=== PATIENT | female | born 2000 | race African-American/Black ===

== ENCOUNTER 2018-06-17 14:58 | Emergency (ER) | payer OTHER ==
[2018-06-17 15:58] LABS: Absolute Monocytes 0.7 K/uL (0.1-1.3); Absolute Neutrophil 4.1 K/uL (1.8-8.0); Basophils % 0.5 % (0-1.3); Eosinophils % 2.6 % (0-4.4); Hematocrit 43.1 % (36.0-45.0); Lymphocytes % 16.3 % (15.3-44.8); MPV 8.3 fL (7.6-11.3); Monocytes % 11.4 % (3.3-12.3); RBC Red Blood Cell Count 5.45 M/uL (3.86-4.86)
[2018-06-17 16:08] LABS: Protime INR 1.3
[2018-06-17 16:24] LABS: ALT/SGPT 23 U/L (12-78); AST/SGOT 14 U/L (15-37); Albumin 3.6 g/dL (3.4-5.0); Alkaline Phosphatase 99 U/L (45-117); BUN Blood Urea Nitrogen 11 mg/dL (7-18); Bicarbonate 24 mmol/L (21-32); Bilirubin Direct 0.1 mg/dL (0-0.2); Bilirubin Total 0.3 mg/dL (0.2-1.0); Glucose Level 86 mg/dL (74-106); Potassium 3.3 mmol/L (3.5-5.1); Protein, Total 8.6 g/dL (6.4-8.2); Sodium Level 138 mmol/L (136-145)
[2018-06-17 16:35] LABS: Barbiturates NEGATIVE (NEGATIVE); Benzodiazepines POSITIVE (NEGATIVE); Cocaine NEGATIVE (NEGATIVE); METHAMPHETAM NEGATIVE (NEGATIVE); Methadone NEGATIVE (NEGATIVE); Opiates NEGATIVE (NEGATIVE); Phencyclidine NEGATIVE (NEGATIVE); THC Cannibis POSITIVE (NEGATIVE)
[2018-06-17] MEDS ORDERED: NA CHLORIDE 0.9% 1,000 ML ONE (16:55)
[2018-06-17] MEDS ORDERED: CEFTRIAXONE/SWI 1gm 1 GM/10 ML SYR ONE (16:55)
[2018-06-17] MEDS ORDERED: HYDROCODONE/APAP 5/325 MG TAB ONE (17:32)
[2018-06-17] MEDS ORDERED: ACETAMINOPHEN 500 MG TAB ONE (17:32)
[2018-06-17 18:07] LABS: Urine Blood NEGATIVE (NEG); Urine Glucose NEGATIVE (NEG); Urine Protein TRACE (NEG); Urine Specific Gravity 1.025 (1.005-1.030)
[2018-06-17] MEDS ORDERED: IBUPROFEN 400 MG TAB ONE (19:32)
--- NOTE | 2018-06-17 20:33 | EDPHYS ---
Physician Documentation [facility] Name: Ramila Wong Age: 17 yrs Sex: Female : 2000 Arrival Date: 06/17/2018 Time: 15:10 Bed 14 Private MD: ED Physician Walt Christopher HPI: 06/17 16:16 This 17 yrs old Black Female presents to ER via Ambulatory with complaints of Suicidal snw Ideation. 16:16 The patient presents to the emergency department with a history of a suicide gesture, snw put [place] lights around her neck after arguing with her Mother. Pt states she is not wanting to hurt herself or anyone else. She says she just doesn't feel good and is very frustrated with her Mother.. Onset: The symptoms/episode began/occurred suddenly, 2 day(s) ago, and became persistent. Past psychiatric history: Prior diagnosis: bipolar disorder, the patient has had a prior suicide gesture, where the patient cut wrists. Associated signs and symptoms: Pertinent positives; fever, sore throat, cough. Severity of symptoms: At their worst the symptoms were moderate. It is unknown whether or not the patient has had similar symptoms in the past. The patient has not recently seen a physician. 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 - Social history:: Smoking status: Patient uses tobacco products, smokes one pack cigarettes per day. Patient uses street drugs, marijuana. - Ebola Screening: : No symptoms or risks identified at this time. ROS: 16:12 Constitutional: Negative for chills and weight loss, + fever Eyes: Negative for injury, snw pain, redness, and discharge. 16:12 Neck: Negative for injury, pain, and swelling, Cardiovascular: Negative for chest pain, palpitations, and edema, Respiratory: Negative for shortness of breath, cough, wheezing, and pleuritic chest pain, Abdomen/GI: Negative for abdominal pain, nausea, vomiting, diarrhea, and constipation, Back: Negative for injury and pain, : Negative for injury, bleeding, discharge, and swelling, MS/Extremity: Negative for injury and deformity, Skin: Negative for injury, rash, and discoloration, Neuro: Negative for headache, weakness, numbness, tingling, and seizure. 16:12 ENT: Positive for sore throat. 16:12 Psych: Positive for suicide gesture, frustration. Exam: 16:04 Constitutional: This is a well developed, well nourished patient who is awake, alert, snw and in no acute distress. febrile, uncomfortable Head/Face: Normocephalic, atraumatic. Eyes: Pupils equal round and reactive to light, extra-ocular motions intact. Lids and lashes normal. Conjunctiva and sclera are non-icteric and not injected. Cornea within normal limits. Periorbital areas with no swelling, redness, or edema. Neck: Trachea midline, no thyromegaly or masses palpated, and no cervical lymphadenopathy. Supple, full range of motion without nuchal rigidity, or vertebral point tenderness. No Meningismus. Chest/axilla: Normal chest wall appearance and motion. Nontender with no deformity. No lesions are appreciated. Respiratory: Lungs have equal breath sounds bilaterally, clear to auscultation and percussion. No rales, rhonchi or wheezes noted. No increased work of breathing, no retractions or nasal flaring. Abdomen/GI: Soft, non-tender, with normal bowel sounds. No distension or tympany. No guarding or rebound. No evidence of tenderness throughout. Back: No spinal tenderness. No costovertebral tenderness. Full range of motion. Skin: Warm, dry with normal turgor. Normal color with no rashes, no lesions, and no evidence of cellulitis. MS/ Extremity: Pulses equal, no cyanosis. Neurovascular intact. Full, normal range of motion. 16:04 Neuro: Awake and alert, GCS 15, oriented to person, place, time, and situation. Cranial nerves II-XII grossly intact. Motor strength 5/5 in all extremities. Sensory grossly intact. Cerebellar exam normal. Normal gait. 16:04 ENT: Ear canal(s): are normal, TM's: decreased mobility, erythema, fluid levels, on the left, Nose: is normal, Mouth: is normal, Posterior pharynx: erythema, that is moderate, Voice: is normal. 16:04 Cardiovascular: Rate: tachycardic, Rhythm: regular, Pulses: no pulse deficits are appreciated, Edema: is not appreciated. 16:04 Psych: Behavior/mood is pleasant, cooperative, Affect is calm, Oriented to person, place, time, pt was very frustrated with her Mother yesterday and today. States her Mother is a mother in name only. Pt has been feeling ill x 2 days and requested seeing a Doctor and Mom did not want to take her. Pt states she is not suicidal or homicidal but just became overly frustrated with her Mom. Pt states she has a solid, safe relationship with her Grandparents and can easily stay with them for a while., Judgement / Insight is normal. Vital Signs: 15:19 BP 107 / 79; Pulse 95; Resp 16; Temp 100.4(O); Pulse Ox 95% on R/A; Weight 117.93 kg; dh3 Height 6 ft. 1 in. (185.42 cm); Pain 8/10; 17:10 BP 111 / 68; Pulse 93; Resp 17; Temp 101.5; Pulse Ox 96% on R/A; dh3 17:55 Temp 100.3; dh3 19:15 Temp 101.6(O); jb4 20:15 BP 121 / 47; Pulse 78; Resp 16; Temp 98.7(O); Pulse Ox 96% on R/A; jb4 15:19 Body Mass Index 34.30 (117.93 kg, 185.42 cm) dh3 MDM: 15:20 Patient medically screened. snw 20:21 Data reviewed: vital signs, nurses notes. Data interpreted: Pulse oximetry: on room air snw is 96 %. Interpretation: acceptable. Counseling: I had a detailed discussion with the patient and/or guardian regarding: the historical points, exam findings, and any diagnostic results supporting the discharge/admit diagnosis, lab results, the need for outpatient follow up, for definitive care, to return to the emergency department if symptoms worsen or persist or if there are any questions or concerns that arise at home. Response to treatment: the patient's symptoms have markedly improved after treatment, patient is well hydrated. states she is safe and comfortable with her Grandparents. Pt states she is not having SI, HI. 20:33 Awaiting: Grandfather to sweet pickle maker. Special discussion: Based on the history and exam [facility] findings, there is no indication for further emergent testing or inpatient evaluation. I discussed with the patient/guardian the need to see the primary care provider for further evaluation of the symptoms. I discussed with the patient/guardian the need to see the psychiatrist for further evaluation of the symptoms. 06/17 15:36 Order name: Acetaminophen [facility] 06/17 15:36 Order name: Basic Metabolic Panel [facility] 06/17 15:36 Order name: CBC with Diff [facility] 06/17 15:36 Order name: ETOH Level [facility] 06/17 15:36 Order name: Hepatic Function [facility] 06/17 15:36 Order name: PT-INR; Complete Time: 16: [facility] 06/17 15:36 Order name: Ptt, Activated; Complete Time: 16: [facility] 06/17 15:36 Order name: Salicylate; Complete Time: 16:52 [facility] 06/17 15:36 Order name: Urine Drug Screen; Complete Time: 16:52 [facility] 06/17 15:36 Order name: Flu; Complete Time: 16:52 [facility] 06/17 15:36 Order name: Strep; Complete Time: 17:02 [facility] 06/17 15:37 Order name: Acetaminophen Level; Complete Time: 16: [facility] 06/17 15:37 Order name: Basic Metabolic Panel; Complete Time: 16: [facility] 06/17 15:37 Order name: CBC with Automated Diff; Complete Time: 16:03 [facility] 06/17 15:36 Order name: Urine Test (obtain specimen); Complete Time: 16:09 [facility] 06/17 15:36 Order name: EKG; Complete Time: 15:37 [facility] 06/17 15:36 Order name: EKG - Nurse/Tech; Complete Time: 16: [facility] 06/17 15:37 Order name: Alcohol Serum/Plasma; Complete Time: 16: [facility] 06/17 15:37 Order name: Liver (Hepatic) Function; Complete Time: 16: [facility] 06/17 16:04 Order name: Urine Dipstick--Ancillary (enter results); Complete Time: 18:14 06/17 16:04 Order name: Urine --Ancillary (enter results); Complete Time: 18:14 06/17 17:00 Order name: Throat Culture EDMS 06/17 17:19 Order name: Diet Finger Food; Complete Time: 17:19 dh3 06/17 15:36 Order name: IV Saline Lock; Complete Time: 16:09 snw 06/17 15:36 Order name: Labs collected and sent; Complete Time: 16:09 snw 06/17 15:36 Order name: Urine Dipstick-Ancillary (obtain specimen); Complete Time: 16:09 snw Administered Medications: 16:01 CANCELLED (Duplicate Order): Rocephin - (cefTRIAXone) 1 grams IVPB once over 30 mins; rb1 (mix in 50 mL NS) 17:00 Drug: NS 0.9% 1000 ml Route: IV; Rate: 1 bolus; Site: right antecubital; rb1 19:00 Follow up: Response: No adverse reaction; IV Status: Completed infusion jb4 17:00 Drug: Rocephin 1 grams Route: IV; Rate: calculated rate; Site: right antecubital; rb1 17:30 Follow up: Response: No adverse reaction; IV Status: Completed infusion rb1 17:24 Drug: Harper 5 mg-325 mg 1 tabs Route: PO; rb1 17:50 Follow up: Response: No adverse reaction; Pain is decreased rb1 17:24 Drug: Tylenol 500 mg Route: PO; rb1 17:50 Follow up: Response: No adverse reaction rb1 19:26 Drug: Motrin 400 mg Route: PO; jb4 20:31 Follow up: Response: No adverse reaction; Temperature is decreased jb4 20:47 Drug: Potassium Effervescent Tablet 50 mEq Route: PO; jb4 20:48 Follow up: Response: No adverse reaction jb4 Disposition: 06/18 07:07 Co-signature as Attending Physician, Walt Christopher MD. rn Disposition: 06/17/18 20:31 Discharged to Home. Impression: Fever presenting with conditions classified elsewhere, Acute suppurative otitis media, Psychological distress - resolved. - Condition is Stable. - Discharge Instructions: Otitis Media, Adult, Fever, Adult, Stress and Stress Management. - Work release form, Medication Reconciliation Form, Thank You Letter, Antibiotic Education, Prescription Opioid Use form. - Follow up: Private Physician; When: 2 - 3 days; Reason: Recheck today's complaints, Continuance of care, Re-evaluation by your physician. Follow up: Emergency Department; When: As needed; Reason: Worsening of condition. Signatures: Dispatcher [employer] EDMS Felicitas Valiente, AIR SUPPORT OPERATIONS OPERATOR-C AIR SUPPORT OPERATIONS OPERATOR-Csnw Walt Christopher MD MD rn Barber, Rebecca, RN RN rb1 Nina Richardson, ANDREAS RN Parag Lopez RN RN jb4 Corrections: (The following items were deleted from the chart) 06/17 16:01 15:36 Rocephin - (cefTRIAXone) 1 grams IVPB once over 30 mins; (mix in 50 mL NS) rb1 ordered. snw 20:55 20:31 06/17/2018 20:31 Discharged to Home. Impression: Fever presenting with conditions jb4 classified elsewhere; Acute suppurative otitis media; Psychological distress - resolved. Condition is Stable. Forms are Medication Reconciliation Form, Thank You Letter, Antibiotic Education, Prescription Opioid Use. Follow up: Private Physician; When: 2 - 3 days; Reason: Recheck today's complaints, Continuance of care, Re-evaluation by your physician. Follow up: Emergency Department; When: As needed; Reason: Worsening of condition. snw
--- NOTE | 2018-06-17 20:33 | ER ---
Nurse's Notes [facility] Name: Ramila Wong Age: 17 yrs Sex: Female : 2000 Arrival Date: 06/17/2018 Time: 15:10 Bed 14 Private MD: Diagnosis: Fever presenting with conditions classified elsewhere;Acute suppurative otitis media;Psychological distress - resolved Presentation: 06/17 15:19 Presenting complaint: Mother called PD for suicidal ideation. Pt wrapped neck with a hb string of [place] lights after argument with mother. Hx Bipolar, previous suicide attempt by cutting arm. Pt reported she was running fever and felt sick yesterday and was trying to come to hospital but mother took away her car keys, today they argued again and she "just got too upset to deal with it.". Transition of care: [facility]. Onset of symptoms was June 17, 2018. Risk Assessment: Do you want to hurt yourself or someone else? Patient reports desire/thoughts of hurting themselves or someone else. Provider notified. Initial Sepsis Screen: Does the patient meet any 2 criteria? No. Patient's initial sepsis screen is negative. Does the patient have a suspected source of infection? No. Patient's initial sepsis screen is negative. Care prior to arrival: None. 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 - Social history:: Smoking status: Patient uses tobacco products, smokes one pack cigarettes per day. Patient uses street drugs, marijuana. - Ebola Screening: : No symptoms or risks identified at this time. Screenin:20 Abuse screen: Denies threats or abuse. Nutritional screening: No deficits noted. rb1 Tuberculosis screening: No symptoms or risk factors identified. Fall Risk None identified. Assessment: 15:20 General: Appears distressed, Behavior is crying, Reports chills for 1-2 days, fever for rb1 feeling ill for Got into a fight with her mother yesterday because she wanted to come to the hospital, but her mother didn't wan there to come. They got into and argument then and today it escalated. The pt. put a string of [place] lights around her neck and threatened to hurt herself and her mother called the police. Pt. stated, "I don't want to hurt myself or anyone else, I just did it in the heat of the moment because I was mad at my mom.". Pain: Complains of pain in head Pain currently is 7 out of 10 on a pain scale. Neuro: Level of Consciousness is awake, alert, obeys commands, Oriented to person, place, time, situation. Cardiovascular: Capillary refill < 3 seconds is brisk in bilateral fingers. Respiratory: Airway is patent Respiratory effort is even, unlabored, Respiratory pattern is regular, symmetrical. GI: No signs and/or symptoms were reported involving the gastrointestinal system. : No signs and/or symptoms were reported regarding the genitourinary system. Derm: Skin is dry, Skin is normal, Skin temperature is warm. Musculoskeletal: Range of motion: intact in all extremities. 16:20 Reassessment: Patient appears in no apparent distress at this time. No changes from rb1 previously documented assessment. Pt. is being very cooperative and is pleasant towards staff. 17:15 Reassessment: Patient appears in no apparent distress at this time. Patient and/or rb1 family updated on plan of care and expected duration. Pain level reassessed. Patient is alert, oriented x 3, equal unlabored respirations, skin warm/dry/pink. C/o of head hurting; provider notified. 18:10 Reassessment: Patient appears in no apparent distress at this time. Patient and/or rb1 family updated on plan of care and expected duration. Pain level reassessed. Patient is alert, oriented x 3, equal unlabored respirations, skin warm/dry/pink. 18:21 Reassessment: Per MEAT PACKAGER Felicitas, pt is not suicidal, discontinue suicide precautions. hb 19:15 Reassessment: Patient appears in no apparent distress at this time. Patient and/or jb4 family updated on plan of care and expected duration. Pain level reassessed. Patient is alert, oriented x 3, equal unlabored respirations, skin warm/dry/pink. Pt temp 101.6 provider notified. See MAR for orders. Cardiovascular: Patient's skin is warm and dry. 20:31 Reassessment: Patient appears in no apparent distress at this time. Patient and/or jb4 family updated on plan of care and expected duration. Pain level reassessed. Patient is alert, oriented x 3, equal unlabored respirations, skin warm/dry/pink. Psych: 15:20 Subjective: Patient's mood is sad. Objective: Patient is cooperative, Speech is normal, rb1 Affect is appropriate. Interventions: Removed personal items and placed in bag. Patient placed in hospital gown. Searched person for dangerous items. Belonging list filled out. Suicide Risk Assessment: Sad Person Scale: Sex of patient: Female: Score 0 points. Age of patient: Score 1 point if patient 15-34. Depression: Score 1 point if signs of depression are present. Previous Attempt: Score 1 point if patient has previously attempted suicide. Substance Abuse: Score 1 point if patient abuses alcohol or drugs. Rational Thinking: Score 0 point if patient has rational thinking. Social Support: Score 0 if social support is present/available. Organized Plan: Score 0 if patient did not have an organized plan in place. Relationship: Score 1 point if patient is , , , or for a single male Chronic Sickness: Score 1 point if patient has illness, chronic, debilitating, or severe. TOTAL POINTS: If total points are 5-6, proposed clinical action is to strongly consider hospitalization, depending upon confidence in the follow-up arrangement. Implement suicide precautions. Safety Checks: Personal items have been removed. Door is open. No visitors are present at this time. Patient uses marijuana. Commitment: Patient will be a voluntary commitment. Vital Signs: 15:19 BP 107 / 79; Pulse 95; Resp 16; Temp 100.4(O); Pulse Ox 95% on R/A; Weight 117.93 kg; dh3 Height 6 ft. 1 in. (185.42 cm); Pain 8/10; 17:10 BP 111 / 68; Pulse 93; Resp 17; Temp 101.5; Pulse Ox 96% on R/A; dh3 17:55 Temp 100.3; dh3 19:15 Temp 101.6(O); jb4 20:15 BP 121 / 47; Pulse 78; Resp 16; Temp 98.7(O); Pulse Ox 96% on R/A; jb4 15:19 Body Mass Index 34.30 (117.93 kg, 185.42 cm) 3 ED Course: 15:10 Patient arrived in ED. ph 15:10 Safety checks: Items removed: yes. Door open/sign placed on door: yes. Family/friend dh3 present: no. Sitter present: Yes. 15:15 Safety checks: Items removed: yes. Door open/sign placed on door: yes. Family/friend dh3 present: no. Sitter present: Yes. 15:20 Felicitas Valiente FNP-C is [facility]. snw 15:20 Walt Christopher MD is Attending Physician. snw 15:20 Patient has correct armband on for positive identification. Placed in gown. Bed in low rb1 position. Call light in reach. Side rails up X 1. 15:25 Triage completed. hb 15:26 Arm band placed on. hb 15:29 Inserted saline lock: 22 gauge in right antecubital area, using aseptic technique. 3 Blood collected. 15:30 Safety checks: Items removed: yes. Door open/sign placed on door: yes. Family/friend dh3 present: no. Sitter present: Yes. 15:40 EKG done, by ED staff, reviewed by Felicitas LOPES. [facility] 15:45 Safety checks: Items removed: yes. Door open/sign placed on door: yes. Family/friend dh3 present: no. Sitter present: Yes. 15:49 Initial lab(s) drawn, by nv, sent to lab. Flu and/or RSV swab sent to lab. [facility] 15:50 Urine collected: hat, gris in color Strep swab sent to lab. [facility] 16:00 Yokasta Bradshaw, RN is Primary Nurse. rb1 16:00 Safety checks: Items removed: yes. Door open/sign placed on door: yes. Family/friend dh3 present: no. Sitter present: Yes. 16:15 Safety checks: Items removed: yes. Door open/sign placed on door: yes. Family/friend dh3 present: no. Sitter present: Yes. 16:30 Safety checks: Items removed: yes. Door open/sign placed on door: yes. Family/friend dh3 present: no. Sitter present: Yes. 16:45 Safety checks: Items removed: yes. Door open/sign placed on door: yes. Family/friend dh3 present: no. Sitter present: Yes. 17:00 Safety checks: Items removed: yes. Door open/sign placed on door: yes. Family/friend dh3 present: no. Sitter present: Yes. 17:15 Safety checks: Items removed: yes. Door open/sign placed on door: yes. Family/friend dh3 present: no. Sitter present: Yes. 17:30 Safety checks: Items removed: yes. Door open/sign placed on door: yes. Family/friend dh3 present: no. Sitter present: Yes. 17:45 Safety checks: Items removed: yes. Door open/sign placed on door: yes. Family/friend dh3 present: no. Sitter present: Yes. 18:00 Safety checks: Items removed: yes. Door open/sign placed on door: yes. Family/friend dh3 present: no. Sitter present: Yes. 18:15 Safety checks: Items removed: yes. Door open/sign placed on door: yes. Family/friend dh3 present: no. Sitter present: Yes. 18:30 Safety checks: Items removed: yes. Door open/sign placed on door: yes. Family/friend dh3 present: no. Sitter present: Yes. 19:00 Report given to ANDREAS Jacques. rb1 20:53 No provider procedures requiring assistance completed. IV discontinued, intact, jb4 bleeding controlled. Administered Medications: 16:01 CANCELLED (Duplicate Order): Rocephin - (cefTRIAXone) 1 grams IVPB once over 30 mins; rb1 (mix in 50 mL NS) 17:00 Drug: NS 0.9% 1000 ml Route: IV; Rate: 1 bolus; Site: right antecubital; rb1 19:00 Follow up: Response: No adverse reaction; IV Status: Completed infusion jb4 17:00 Drug: Rocephin 1 grams Route: IV; Rate: calculated rate; Site: right antecubital; rb1 17:30 Follow up: Response: No adverse reaction; IV Status: Completed infusion rb1 17:24 Drug: [place] 5 mg-325 mg 1 tabs Route: PO; rb1 17:50 Follow up: Response: No adverse reaction; Pain is decreased rb1 17:24 Drug: Tylenol 500 mg Route: PO; rb1 17:50 Follow up: Response: No adverse reaction rb1 19:26 Drug: Motrin 400 mg Route: PO; jb4 20:31 Follow up: Response: No adverse reaction; Temperature is decreased jb4 20:47 Drug: Potassium Effervescent Tablet 50 mEq Route: PO; jb4 20:48 Follow up: Response: No adverse reaction jb4 Outcome: 20:31 Discharge ordered by MD. todd 20:53 Discharged to home ambulatory, with family, Grandfather. jb4 20:53 Condition: stable 20:53 Discharge instructions given to patient, Instructed on discharge instructions, follow up and referral plans. Demonstrated understanding of instructions, follow-up care. 20:55 Patient left the ED. jb4 Signatures: Felicitas Valiente, DIRECTOR IT-C DIRECTOR IT-Csnw Michelle Mccann, RN RN Yokasta Bradshaw, RN RN rb1 Nina Richardson RN RN Parag Lopez RN RN jb4 Mag Valverde dh3 Corrections: (The following items were deleted from the chart) 16:05 15:26 BP 134 / 78; Pulse 88bpm; Resp 16bpm; Pulse Ox 100% RA; Temp 98.7F; Pain 5/10; hb dh3 16:08 15:26 BP 107 / 79; Pulse 95bpm; Resp 16bpm; Pulse Ox 95% RA; Temp 100.4F Oral; 117.93 dh3 kg; Height 6 ft. 1 in.; BMI: 34.3; Pain 8/10; dh3
[2018-06-17] MEDS ORDERED: POTASSIUM 25 MEQ EFFERV TAB ONE (20:49)
--- NOTE | 2018-06-19 07:59 | EKG ---
Test Date: 2018-06-17 Test Time: 15:39:13 Shoe Repairman: MAXI MEASUREMENT RESULTS: Intervals: Rate: 94 VT: 156 QRSD: 96 QT: 348 QTc: 435 [place]: P: 63 VT: 156 QRS: 63 T: 51 INTERPRETIVE STATEMENTS: Normal sinus rhythm Normal ECG Compared to ECG 06/22/2016 12:48:38 Sinus arrhythmia no longer present Electronically Signed On 06-19-18 07:54:37 AGRICULTURAL REAL ESTATE AGENT by Pawel Nair
== END 2018-06-17 20:55 | disposition home or self-care (01) ==
LOC: ER 14:58
DX: H66.009 Acute suppurative otitis media without spontaneous rupture of ear drum, unspecified ear (principal); F31.9 Bipolar disorder, unspecified; F17.210 Nicotine dependence, cigarettes, uncomplicated
CPT/HCPCS: 36415; 80048; 80076; 80307; 80320; 80329; 81003; 81025; 85025; 85610; 85730; 87070; 87081; 87804; 93005; 96361; 96365; 99285; J0696; J7030

== ENCOUNTER 2021-01-24 09:26 | Emergency (ER) | payer OTHER ==
--- OUTSIDE RECORDS SUMMARY | 2021-01-24 09:28 | XMS REPORT | Continuity of Care Document ---
:2000 Author Organization [facility] t Address [address] [place] [address] Dr. Landaverde [address] [place] [id number] Care Team Providers Name Role Phone Unavailable Unavailable Unavailable Problems This patient has no known problems. Allergies, Adverse Reactions, Alerts This patient has no known allergies or adverse reactions. Medications This patient has no known medications. Procedures This patient has no known procedures. Results This patient has no known results.
[2021-01-24 09:54] LABS: Urine Blood Negative (Negative); Urine Glucose Negative (Negative); Urine Protein 1+ (Negative); Urine Specific Gravity >=1.030 (1.005-1.030)
--- NOTE | 2021-01-24 10:18 | EDPHYS ---
Physician Documentation [facility] Name: Ramila Wong Age: 20 yrs Sex: Female : 2000 Arrival Date: 01/24/2021 Time: 09:31 Bed 18 Private MD: DAVID Physician López Zamora HPI: 01/24 10:11 This 20 yrs old Black Female presents to ER via Ambulatory with complaints of Psych josie Problem. 10:11 The patient presents to the emergency department with anxiety. Onset: The josie symptoms/episode began/occurred yesterday. Past psychiatric history: Prior diagnosis: bipolar disorder. Associated signs and symptoms: The patient has no apparent associated signs or symptoms. Severity of symptoms: At their worst the symptoms were mild in the emergency department the symptoms have resolved and did so just prior to arrival. The patient has experienced similar episodes in the past, several times. 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 - Social history:: Smoking status: Patient reports the use of cigarette tobacco products, smokes one pack cigarettes per day. - Family history:: not pertinent. ROS: 10:11 Constitutional: Negative for fever, chills, and weight loss, Eyes: Negative for injury, josie pain, redness, and discharge, ENT: Negative for injury, pain, and discharge, Neck: Negative for injury, pain, and swelling, Cardiovascular: Negative for chest pain, palpitations, and edema, Respiratory: Negative for shortness of breath, cough, wheezing, and pleuritic chest pain, Abdomen/GI: Negative for abdominal pain, nausea, vomiting, diarrhea, and constipation, Back: Negative for injury and pain, : Negative for injury, bleeding, discharge, and swelling, MS/Extremity: Negative for injury and deformity, Skin: Negative for injury, rash, and discoloration, Neuro: Negative for headache, weakness, numbness, tingling, and seizure, Allergy/Immunology: Negative for hives, rash, and allergies, Endocrine: Negative for neck swelling, polydipsia, polyuria, polyphagia, and marked weight changes, Hematologic/Lymphatic: Negative for swollen nodes, abnormal bleeding, and unusual bruising. 10:11 Psych: Positive for anxiety, depression, suicidal ideation. Exam: 10:11 Constitutional: This is a well developed, well nourished patient who is awake, alert, josie and in no acute distress. Head/Face: Normocephalic, atraumatic. Eyes: Pupils equal round and reactive to light, extra-ocular motions intact. Lids and lashes normal. Conjunctiva and sclera are non-icteric and not injected. Cornea within normal limits. Periorbital areas with no swelling, redness, or edema. ENT: Nares patent. No nasal discharge, no septal abnormalities noted. Tympanic membranes are normal and external auditory canals are clear. Oropharynx with no redness, swelling, or masses, exudates, or evidence of obstruction, uvula midline. Mucous membranes moist. Neck: Trachea midline, no thyromegaly or masses palpated, and no cervical lymphadenopathy. Supple, full range of motion without nuchal rigidity, or vertebral point tenderness. No Meningismus. Chest/axilla: Normal chest wall appearance and motion. Nontender with no deformity. No lesions are appreciated. Cardiovascular: Regular rate and rhythm with a normal S1 and S2. No gallops, murmurs, or rubs. Normal PMI, no JVD. No pulse deficits. Respiratory: Lungs have equal breath sounds bilaterally, clear to auscultation and percussion. No rales, rhonchi or wheezes noted. No increased work of breathing, no retractions or nasal flaring. Abdomen/GI: Soft, non-tender, with normal bowel sounds. No distension or tympany. No guarding or rebound. No evidence of tenderness throughout. Back: No spinal tenderness. No costovertebral tenderness. Full range of motion. Skin: Warm, dry with normal turgor. Normal color with no rashes, no lesions, and no evidence of cellulitis. MS/ Extremity: Pulses equal, no cyanosis. Neurovascular intact. Full, normal range of motion. Neuro: Awake and alert, GCS 15, oriented to person, place, time, and situation. Cranial nerves II-XII grossly intact. Motor strength 5/5 in all extremities. Sensory grossly intact. Cerebellar exam normal. Normal gait. Psych: Awake, alert, with orientation to person, place and time. Behavior, mood, and affect are within normal limits. 10:11 Neuro: Orientation: is normal, appropriate for stated age, no acute changes, Mentation: is normal, appropriate for stated age, no acute changes, Memory: is normal, appropriate for stated age, no acute changes, Cranial nerves: grossly normal, is grossly normal based on the patient's age, no acute changes, Cerebellar function: is grossly normal, Motor: is normal, Sensation: is normal, no obvious gross deficits, appropriate no acute changes, Gait: not applicable is steady, is unsteady, Deep tendon reflexes are 2+ (normal) in the bilateral brachioradialis, bicep, tricep and patellar and Achilles tendons, seizure activity, is not displayed by the patient. Vital Signs: 09:41 BP 118 / 66; Pulse 79; Resp 16; Temp 98.0; Pulse Ox 100% on R/A; Weight 117.93 kg; iw Height 6 ft. 2 in. (187.96 cm); 09:41 Body Mass Index 33.38 (117.93 kg, 187.96 cm) iw MDM: 09:32 Patient medically screened. [facility] 01/24 09:33 Order name: Urine Drug Screen [facility] 01/24 09:33 Order name: EKG; Complete Time: 09:34 [facility] 01/24 09:53 Order name: Urine Dipstick-Ancillary [facility] 01/24 09:55 Order name: Urine --Ancillary (enter results) [facility] 01/24 09:33 Order name: EKG - Nurse/Tech [facility] 01/24 09:33 Order name: IV Saline Lock [facility] 01/24 09:33 Order name: Labs collected and sent [facility] 01/24 09:33 Order name: Suicide Precautions [facility] 01/24 09:33 Order name: Suicide Screening ([place]) [facility] 01/24 09:33 Order name: Urine Dipstick-Ancillary (obtain specimen); Complete Time: 09:49 [facility] 01/24 09:33 Order name: Urine Test (obtain specimen) josie Administered Medications: 10:19 Not Given (Physician Discretion): NS 0.9% 1000 ml IV at 1 bolus Per protocol; 1000 mL iw bolus Disposition Summary: 01/24/21 10:17 Discharge Ordered Location: Home josie Problem: new josie Symptoms: have improved josie Condition: Stable josie Diagnosis - Bipolar disorder, unspecified josie - Adjustment disorder with depressed mood josie - Suicidal ideations - resolved josie Followup: josie - With: Private Physician - When: 2 - 3 days - Reason: Recheck today's complaints, Continuance of care, Re-evaluation by your physician Followup: josie - With: Horacio Castillo MD - When: 2 - 3 days - Reason: Recheck today's complaints, Continuance of care, Re-evaluation by your physician Discharge Instructions: - Discharge Summary Sheet josie - Suicidal Feelings: How to Help Yourself josie - Mixed Bipolar Disorder josie - Supporting Someone With Bipolar Disorder josie Forms: - Medication Reconciliation Form josie - Thank You Letter josie - Antibiotic Education josie - Prescription Opioid Use josie Signatures: Dispatcher [employer] EDMS López Zamora MD MD cha Williams, Irene, RN RN iw Corrections: (The following items were deleted from the chart) 10:17 09:33 ACETAMINOPHEN+C.LAB.BRZ ordered. EDMS EDMS 10:17 09:33 BASIC METABOLIC PANEL+C.LAB.BRZ ordered. EDMS EDMS 10:17 09:33 CBC+H.LAB.BRZ ordered. EDMS EDMS 10:17 09:33 HEPATIC FUNCTION+C.LAB.BRZ ordered. EDMS EDMS 10:18 09:33 ETHANOL+C.LAB.BRZ ordered. EDMS EDMS 10:18 09:33 PROTIME (+INR)+COAG.LAB.BRZ ordered. EDMS EDMS 10:18 09:33 PTT, ACTIVATED+COAG.LAB.BRZ ordered. EDMS EDMS 10:18 09:34 SALICYLATE+C.LAB.BRZ ordered. EDMS EDMS
--- NOTE | 2021-01-24 10:18 | ER ---
Nurse's Notes [facility] Name: Ramila Wong Age: 20 yrs Sex: Female : 2000 Arrival Date: 01/24/2021 Time: 09:31 Bed 18 Private MD: Diagnosis: Bipolar disorder, unspecified;Adjustment disorder with depressed mood;Suicidal ideations-resolved Presentation: 01/24 09:41 Chief complaint: Patient states: was in assisted and got frustrated , was tying a blanket iw to the vent and told the police booking officer "I don't wanna be here"pt denies suicidal ideation at this time, states she was cold and not feeling well and wanted to leave, pt c/o runny nose, cough, was tested for COVID yesterday , results are pending. Coronavirus screen: At this time, the client does not indicate any symptoms associated with coronavirus-19. Ebola Screen: Patient negative for fever greater than or equal to 101.5 degrees Fahrenheit, and additional compatible Ebola Virus Disease symptoms Patient denies exposure to infectious person. Patient denies travel to an Ebola-affected area in the 21 days before illness onset. No symptoms or risks identified at this time. Initial Sepsis Screen: Does the patient meet any 2 criteria? No. Patient's initial sepsis screen is negative. Does the patient have a suspected source of infection? No. Patient's initial sepsis screen is negative. Risk Assessment: Do you want to hurt yourself or someone else? Patient reports no desire to harm self or others. Onset of symptoms was January 24, 2021. 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 - Social history:: Smoking status: Patient reports the use of cigarette tobacco products, smokes one pack cigarettes per day. - Family history:: not pertinent. Vital Signs: 09:41 BP 118 / 66; Pulse 79; Resp 16; Temp 98.0; Pulse Ox 100% on R/A; Weight 117.93 kg; iw Height 6 ft. 2 in. (187.96 cm); 09:41 Body Mass Index 33.38 (117.93 kg, 187.96 cm) iw ED Course: 09:31 Patient arrived in ED. iw 09:32 López Zamora MD is Attending Physician. josie 09:45 Triage completed. iw 09:48 Arm band placed on. iw 10:15 Horacio Castillo MD is Referral Physician. josie 10:32 Jennifer Bermudez, RN is Primary Nurse. iw 10:32 IV discontinued, intact, bleeding controlled, No redness/swelling at site. Pressure iw dressing applied. Administered Medications: 10:19 Not Given (Physician Discretion): NS 0.9% 1000 ml IV at 1 bolus Per protocol; 1000 mL iw bolus Outcome: 10:17 Discharge ordered by . josie 10:32 Discharged to home ambulatory, with family. iw 10:32 Condition: good 10:32 Discharge instructions given to patient, Instructed on discharge instructions, follow up and referral plans. Demonstrated understanding of instructions, follow-up care. 10:32 Patient left the ED. iw Signatures: López Zamora MD MD cha Williams, Irene, RN RN iw
[2021-01-24 10:41] LABS: Barbiturates NEGATIVE (NEGATIVE); Benzodiazepines NEGATIVE (NEGATIVE); Cocaine NEGATIVE (NEGATIVE); METHAMPHETAM NEGATIVE (NEGATIVE); Methadone NEGATIVE (NEGATIVE); Opiates NEGATIVE (NEGATIVE); Phencyclidine NEGATIVE (NEGATIVE); THC Cannibis POSITIVE (NEGATIVE)
[2021-01-24 10:46] VITALS: BP 118/66; TEMP 98; O2SAT 100
[2021-01-24 12:29] LABS: Urine Specific Gravity/Preg >1.030 (1.005-1.030)
== END 2021-01-24 10:32 | disposition home or self-care (01) ==
LOC: ER 09:26
DX: F43.21 Adjustment disorder with depressed mood (principal); F31.9 Bipolar disorder, unspecified; F17.210 Nicotine dependence, cigarettes, uncomplicated; Z20.822 Contact with and (suspected) exposure to COVID-19
CPT/HCPCS: 81025; 81003; 80307; 99281; U0003

== ENCOUNTER 2022-07-23 04:27 | Emergency (ER) | payer OTHER ==
--- OUTSIDE RECORDS SUMMARY | 2022-07-23 04:30 | XMS REPORT | Continuity of Care Document ---
:2000 Author Organization [facility] t Address [address] [place] [address] [address] [place] [address] Care Team Providers Name Role Phone Pcp, Patient Does Not Have A Primary Care Physician [id number] Doctor Unassigned, [place] Attending Clinician Unavailable Dell Oliver Attending Clinician Unavailable Clint Londono MD Attending Clinician CLINT LONDONO Attending Clinician Unavailable Team, [facility] Attending Clinician UnavailERIKA Pereira Attending Clinician Unavailable Erika Huitron MD Attending Clinician Devorah Nuno PA-C Attending Clinician Loan Duran Attending Clinician Payers Payer Name Policy Type Policy Number Effective Date Expiration Date S [facility] [id number] 2015 [employer] 00:00:00 Problems Condition Condition Condition Status Onset Resolution Last Treating Co mments Source Name Details Category Date Date Treatment Clinician Date Amenorrhea Amenorrhea Disease Active 2020-0 U nivers , , 9-18 [place] Morbid Morbid Disease Active 2019-05 Univers obesity obesity 0-01 [place] of with body [place] mass index mass index 00 Me dical of of Branch 40.0-49.9 40.0-49.9 Morbid Morbid Disease Active 2019-05 Univers obesity obesity 0-01 [place] of with body [place] mass index mass index 00 Me dical of of Branch 40.0-49.9 40.0-49.9 Obesity Obesity Disease Active Univers (BMI (BMI 9-29 ity of 30-39.9) 30-39.9) 00:00: [place] 00 Medical Branch No known No known Disease Unive rs active active ity of problems problems [facility] Allergies, Adverse Reactions, Alerts Allergy Allergy Status Severity Reaction(s) Onset Inactive Treating Comm ents Source Name Type Date Date Clinician NO KNOWN Drug Active Univers ALLERGIE Class ity of S [facility] Social History Social Habit Start Date Stop Date Quantity Comments Source History of tobacco Cigarette Smoker University of use [facility] Exposure to Not sure [facility] SARS-CoV-2 (event) [facility] Alcohol intake 2021-02-07 2021-02-07 Current drinker Unive rsity of 00:00:00 00:00:00 of alcohol [facility] (finding) [place] Cigarettes smoked 2020-02-19 2020-02-19 Univers ity of current (pack per 00:00:00 00:00:00 ) - Reported Branch Tobacco use and 2020-02-19 2020-02-19 Smokeless Universit y of exposure 00:00:00 00:00:00 tobacco non-user [facility] Sex Assigned At [birth year] Universit y of 00:00:00 00:00:00 [facility] Smoking Status Start Date Stop Date Source Smokes tobacco daily 2020-02-19 00:00:00 Univers ity of [facility] Never smoker University [facility] Medications Ordered Filled Start Stop Current Ordering Indication Dosage Frequency Signature Comments Components Source Medication Medication Date Date Medication? Clinician (SIG) Name Name LEVONORGEST 2020- No by Unive rs REL (MIRENA 02-07 Intrauteri i ty of INTRAUTERIN 11:50: 00:00 ne route. [facility]) 44 :00 Medical Branch LEVONORGEST 2020- No by Unive rs REL (MIRENA 02-07 Intrauteri i ty of INTRAUTERIN 11:50: 00:00 ne route. [facility]) 44 :00 Medical Branch LEVONORGEST No by [facility] rs REL (MIRENA 9-18 02-07 Intrauteri i ty of INTRAUTERIN 11:50: 00:00 ne route. [place] E) 44 :00 Medical Branch medroxyPROG 2020- No [id number] 10mg Take 1 Univers ESTERone 02-07 tablet by ity o f (PROVERA) 00:00: 04:59 mouth [place] 10 mg 00 :00 daily for Medical tablet 10 days. Branch medroxyPROG 2020- No [id number] 10mg Take 1 Univers ESTERone 02-07 tablet by ity o f (PROVERA) 00:00: 04:59 mouth [place] 10 mg 00 :00 daily for Medical tablet 10 days. Branch medroxyPROG 2020- No [id number] 10mg Take 1 Univers ESTERone 02-07 tablet by ity o f (PROVERA) 00:00: 04:59 mouth [place] 10 mg 00 :00 daily for Medical tablet 10 days. Branch LEVONORGEST 2020-0 Yes by [facility] s REL (MIRENA 9-29 Intrauteri it y of INTRAUTERIN 18:58: [place] route. [place] 40 Medical Branch LEVONORGEST 2020-0 Yes by [facility] s REL (MIRENA 9-29 Intrauteri it y of INTRAUTERIN 18:58: [place] route. [place]) 40 Medical Branch LEVONORGEST 2020-0 Yes by [facility] s REL (MIRENA 9-29 Intrauteri it y of INTRAUTERIN 18:58: ne route. [place] E) 40 Medical Branch LEVONORGEST 2020-0 Yes by [facility] s REL (MIRENA 9-29 Intrauteri it y of INTRAUTERIN 18:58: ne route. [place] E) 40 Medical Branch LEVONORGEST 2020-0 Yes by [facility] s REL (MIRENA 9-29 Intrauteri it y of INTRAUTERIN 18:58: ne route. [place] E) 40 Medical Branch LEVONORGEST 2020-0 Yes by [facility] s REL (MIRENA 9-29 Intrauteri it y of INTRAUTERIN 18:58: [place] route. [place] E) 40 Medical Branch LEVONORGEST 2020-0 Yes by Univer s REL (MIRENA 9-29 Intrauteri it y of INTRAUTERIN 18:58: ne route. [place] E) 40 Medical Branch ibuprofen 2020-0 Yes 800mg Take 800 Uni vers (MOTRIN) 9-29 mg by ity of 800 mg 18:38: mouth [place] tablet 30 every 6 Medical (six) Branch hours as needed. ibuprofen 2020-0 Yes 800mg Take 800 Uni vers (MOTRIN) 9-29 mg by ity of 800 mg 18:38: mouth [place] tablet 30 every 6 Medical (six) Branch hours as needed. ibuprofen 2020-0 Yes 800mg Take 800 Uni vers (MOTRIN) 9-29 mg by ity of 800 mg 18:38: mouth [place] tablet 30 every 6 Medical (six) Branch hours as needed. ibuprofen 2020-0 Yes 800mg Take 800 Uni vers (MOTRIN) 9-29 mg by ity of 800 mg 18:38: mouth [place] tablet 30 every 6 Medical (six) Branch hours as needed. ibuprofen 2020-0 Yes 800mg Take 800 Uni vers (MOTRIN) 9-29 mg by ity of 800 mg 18:38: mouth [place] tablet 30 every 6 Medical (six) Branch hours as needed. ibuprofen 2020-0 Yes 800mg Take 800 Uni vers (MOTRIN) 9-29 mg by ity of 800 mg 18:38: mouth [place] tablet 30 every 6 Medical (six) Branch hours as needed. ibuprofen 2020-0 Yes 800mg Take 800 Uni vers (MOTRIN) 9-29 mg by ity of 800 mg 18:38: mouth [place] tablet 30 every 6 Medical (six) Branch hours as needed. ibuprofen 2020-0 Yes 800mg Take 800 Uni vers (MOTRIN) 9-29 mg by ity of 800 mg 13:38: mouth [place] tablet 30 every 6 Medical (six) Branch hours as needed. ibuprofen 2020-0 Yes 800mg Take 800 Uni vers (MOTRIN) 9-29 mg by ity of 800 mg 13:38: mouth [place] tablet 30 every 6 Medical (six) Branch hours as needed. ibuprofen 2020-0 Yes 800mg Take 800 Uni vers (MOTRIN) 9-29 mg by ity of 800 mg 13:38: mouth [place] tablet 30 every 6 Medical (six) Branch hours as needed. ibuprofen 2020-0 Yes 800mg Take 800 Uni vers (MOTRIN) 9-29 mg by ity of 800 mg 13:38: mouth [place] tablet 30 every 6 Medical (six) Branch hours as needed. omeprazole 2020-0 Yes Univers 20 mg 9-16 ity of capsule 00:00: [place] Medical [facility] omeprazole 2020-0 Yes Univers 20 mg 9-16 ity of capsule 00:00: [place] [address] Medical Branch omeprazole 2020-0 Yes Univers 20 mg 9-16 ity of capsule 00:00: [place] [address] Medical Branch omeprazole 2020-0 Yes Univers 20 mg 9-16 ity of capsule 00:00: [place] [address] Medical Branch omeprazole 2020-0 Yes Univers 20 mg 9-16 ity of capsule 00:00: [place] [address] Medical Branch omeprazole 2020-0 Yes Univers 20 mg 9-16 ity of capsule 00:00: [place] [address] Medical Branch omeprazole 2020-0 Yes Univers 20 mg 9-16 ity of capsule 00:00: [place] [address] Medical Branch omeprazole 2020-0 Yes Univers 20 mg 9-16 ity of capsule 00:00: [place] [address] Medical Branch omeprazole 2020-0 Yes Univers 20 mg 9-16 ity of capsule 00:00: [place] [address] Medical Branch omeprazole 2020-0 Yes Univers 20 mg 9-16 ity of capsule 00:00: [place] [address] Medical Branch omeprazole 2020-0 Yes Univers 20 mg 9-16 ity of capsule 00:00: [place] [address] Medical Branch azithromyci 2016-0 Yes Take 2 po U nivers n 7-06 today then ity of (ZITHROMAX) 00:00: 1 po qd x [place] 250 mg 00 4 days Medical tablet Branch msithromyci 2016-0 Yes Take 2 po U nivers n 7-06 today then ity of (ZITHROMAX) 00:00: 1 po qd x [place] 250 mg 00 4 days Medical tablet Branch azithromyci 2015-0 Yes Take 2 po U nivers n 7-06 today then ity of (ZITHROMAX) 00:00: 1 po qd x [place] 250 mg 00 4 days Medical tablet Branch azithromyci 2015-0 Yes Take 2 po U nivers n 7-06 today then ity of (ZITHROMAX) 00:00: 1 po qd x [place] 250 mg 00 4 days Medical tablet Branch azithromyci 2015-0 Yes Take 2 po U nivers n 7-06 today then ity of (ZITHROMAX) 00:00: 1 po qd x [place] 250 mg 00 4 days Medical tablet Branch azithromyci 2015-0 Yes Take 2 po U nivers n 7-06 today then ity of (ZITHROMAX) 00:00: 1 po qd x [place] 250 mg 00 4 days Medical tablet Branch azithromyci 0 Yes Take 2 po U nivers n 7-06 today then ity of (ZITHROMAX) 00:00: 1 po qd x [place] 250 mg 00 4 days Medical tablet Branch azithromyci 0 Yes Take 2 po U nivers n 7-06 today then ity of (ZITHROMAX) 00:00: 1 po qd x [place] 250 mg 00 4 days Medical tablet Branch azithromyci 0 Yes Take 2 po U nivers n 7- today then ity of (ZITHROMAX) 00:00: 1 po qd x [place] 250 mg 00 4 days Medical tablet Branch azithromyci 0 Yes Take 2 po U nivers n 7-06 today then ity of (ZITHROMAX) 00:00: 1 po qd x [place] 250 mg 00 4 days Medical tablet Branch azithromyci 0 Yes Take 2 po U nivers n 7-06 today then ity of (ZITHROMAX) 00:00: 1 po qd x [place] 250 mg 00 4 days Medical tablet Branch azithromyci 0 Yes Take 2 po U nivers n 7- today then ity of (ZITHROMAX) 00:00: 1 po qd x [place] 250 mg 00 4 days Medical tablet Branch azithromyci 0 Yes Take 2 po U nivers n 7-06 today then ity of (ZITHROMAX) 00:00: 1 po qd x [place] 250 mg 00 4 days Medical tablet Branch azithromyci 0 Yes Take 2 po U nivers n 7-06 today then ity of (ZITHROMAX) 00:00: 1 po qd x [place] 250 mg 00 4 days Medical tablet Branch azithromyci 0 Yes Take 2 po U nivers n 7-06 today then ity of (ZITHROMAX) 00:00: 1 po qd x [place] 250 mg 00 4 days Medical tablet Branch azithromyci Yes Take 2 po U nivers n 7-06 today then ity of (ZITHROMAX) 00:00: 1 po qd x [place] 250 mg 00 4 days Medical tablet Branch LEVONORGEST Yes by Univer s REL (MIRENA 5-20 Intrauteri it y of INTRAUTERIN 16:31: ne route. [place] E) 23 Medical Branch LEVONORGEST Yes by Univer s REL (MIRENA 5-20 Intrauteri it y of INTRAUTERIN 16:31: ne route. [place] E) 23 Medical Branch LEVONORGEST Yes by Univer s REL (MIRENA 5-20 Intrauteri it y of INTRAUTERIN 16:31: ne route. [place] E) 23 Medical Branch LEVONORGEST Yes by Univer s REL (MIRENA 5-20 Intrauteri it y of INTRAUTERIN 16:31: ne route. [place] E) 23 Medical Branch LEVONORGEST Yes by Univer s REL (MIRENA 5-20 Intrauteri it y of INTRAUTERIN 16:31: ne route. [place] E) 23 Medical Branch ibuprofen 0 Yes 800mg Take 800 Uni vers (MOTRIN) 5-28 mg by ity of 800 mg 20:32: mouth [place] tablet 44 every 6 Medical (six) Branch hours as needed. ibuprofen Yes 800mg Take 800 Uni vers (MOTRIN) 5-28 mg by ity of 800 mg 20:32: mouth [place] tablet 44 every 6 Medical (six) Branch hours as needed. ibuprofen 0 Yes 800mg Take 800 Uni vers (MOTRIN) 5-28 mg by ity of 800 mg 20:32: mouth [place] tablet 44 every 6 Medical (six) Branch hours as needed. ibuprofen 0 Yes 800mg Take 800 Uni vers (MOTRIN) 5-28 mg by ity of 800 mg 20:32: mouth [place] tablet 44 every 6 Medical (six) Branch hours as needed. ibuprofen 0 Yes 800mg Take 800 Uni vers (MOTRIN) 5-28 mg by ity of 800 mg 20:32: mouth [place] tablet 44 every 6 Medical (six) Branch hours as needed. Vital Signs Vital Name Observation Time Observation Value Comments Source Systolic blood 2021-02-06 21:10:00 97 mm[Hg] Univer sity of pressure [place] [facility] Diastolic blood 2021-02-06 21:10:00 64 mm[Hg] Unive rsity of pressure [place] [facility] Heart rate 2021-02-06 21:10:00 94 /min Universi ty of [facility] Branch Body temperature 2021-02-06 21:10:00 36.78 Dot Univ ersity of [place] [facility] Respiratory rate 2021-02-06 21:10:00 16 /min Univ ersity of [place] [facility] Body height 2021-02-06 21:10:00 185.4 cm Universi ty of [place] [facility] Body weight 2021-02-06 21:10:00 144.697 kg Universi ty of [place] [facility] BMI 2021-02-06 21:10:00 42.09 kg/m2 Universi ty of [place] [facility] Systolic blood 2020-02-21 14:05:00 113 mm[Hg] Univer sity of pressure [place] [facility] Diastolic blood 2020-02-21 14:05:00 74 mm[Hg] Unive rsity of pressure [place] [facility] Heart rate 2020-02-21 14:05:00 84 /min Universi ty of [place] [facility] Body temperature 2020-02-21 14:05:00 36.83 Dot Univ ersity of [place] [facility] Respiratory rate 2020-02-21 14:05:00 18 /min Univ ersity of [place] [facility] Body height 2020-02-21 14:05:00 185.4 cm Universi ty of [place] [facility] Body weight 2020-02-21 14:05:00 139.708 kg Universi ty of [place] [facility] BMI 2020-02-21 14:05:00 40.64 kg/m2 Universi ty of [place] [facility] Body height 2020-02-19 18:34:00 188 cm Universi ty of [place] [facility] Body weight 2020-02-19 18:34:00 138.801 kg Universi ty of [place] [facility] BMI 2020-02-19 18:34:00 39.29 kg/m2 Universi ty of [place] [facility] Systolic blood 2020-02-19 18:34:00 129 mm[Hg] Univer sity of pressure [place] [facility] Diastolic blood 2020-02-19 18:34:00 82 mm[Hg] Unive rsity of pressure [facility] Heart rate 2020-02-19 18:34:00 100 /min [facility] Body temperature 2020-02-19 18:34:00 36.94 Dot [facility] 2020-02-19 18:34:00 20 /min Univ [facility] Systolic blood 2019-08-20 00:09:05 122 mm[Hg] Univer sity of pressure [facility] Diastolic blood 2019-08-20 00:09:05 100 mm[Hg] Unive rsity of pressure [facility] Heart rate 2019-08-20 00:09:05 90 /min Universi [facility] Respiratory rate 2019-08-20 00:09:05 19 /min [facility] Body temperature 2019-08-19 23:28:00 37.67 Dot [facility] Body weight 2019-08-19 23:28:00 111.131 kg [facility] Oxygen saturation in 2019-08-19 23:28:00 99 /min [facility] Arterial blood by [facility] Pulse oximetry Branch Procedures Procedure Date / Time Performing Clinician Source Performed - 2022-01-19 05:01:00 Doctor Unassigned, No [facility] CONSENTS, ELIGIBILITY, Name Medical B ranch HISTORY POCT TEST 2021-02-06 21:02:00 Clint Londono [facility] ASSIGNMENT OF BENEFITS 2020-02-19 18:13:42 Doctor Unassigned, No [facility] NOTICE OF PRIVACY 2019-08-19 23:20:17 Doctor Unassigned, No [facility] Encounters Start End Encounter Admission Attending Care Care Encounter Source Date/Time Date/Time Type Type Clinicians Facility Department ID 2022-02-18 Outpatient [facility] [id number] [facility] 12:50:[address] [place] [address] 2022-01-19 2022-01-19 Orders Doctor BAIG [id number] Univers 00:00:00 00:00:00 Only Unassigned, LACY [id number] ity of [place] [facility] [id number] [place] as [phone] [facility] [address] [place] 2021-12-09 2021-12-09 Outpatient Ben[place], EDITH W [id number] [place] 00:00:00 00:00:00 [facility] and [facility] s 2021-02-06 2021-02-06 Office Clint Londono [facility] [id number] Univers 15:40:13 16:30:19 Visit Rocio [id number] i ty of [id number] [phone] Mn dical nal [address] [place] [address] 2021-02-06 2021-02-06 Outpatient R CLINT LONDONO [facility] [id number] Univers 15:30:00 15:30:00 ity [facility] 2020-09-24 2020-09-24 Telephone Team, [facility] JOVANNI [id number] Univers 00:00:00 00:00:00 Health [place] [id number] it y [facility] [id number] [place] [phone] [address] 2020-04-25 2020-04-25 Outpatient R ADUM, [facility] [id number] Univers 15:30:00 15:30:00 ERIKA radha [facility] 2020-02-27 2020-02-27 Outpatient R ADUM, [facility] [id number] Univers 13:00:00 13:00:00 ERIKA ity [facility] 2020-02-21 2020-02-21 Office Ad, [facility] [id number] Univers 08:42:25 09:26:24 Visit Erika Chan [id number] ity [facility] [id number] [phone] Mn dic[address] 2020-02-21 2020-02-21 Outpatient R ADUM, [facility] [id number] Univers 08:30:00 08:30:00 ERIKA itradha [facility] 2020-02-21 2020-02-21 Letter Adum, [facility] [id number] Univers 00:00:00 00:00:00 (Out) Erika Jaylan Chan [id number] ity [id number] [id number] Mn dical [address] 2020-02-19 2020-02-19 [facility] [id number] Univers 13:14:10 14:03:48 Visit Erika Chan [id number] ity [id number] [phone] [address] 2020-02-19 2020-02-19 [facility] [id number] Univers 13:00:00 13:00:00 ERIKA ity of [facility] 2020-02-19 2020-02-19 Telephone [facility] [id number] Univers 00:00:00 00:00:00 Erika Chan [id number] ity [place] [id number] [phone] [address] 2020-02-19 2020-02-19 Orders Doctor JOVANNI [id number] Univers 00:00:00 00:00:00 Only Unassigned, LACY [id number] ity of [place] [facility] [id number] [place] as [phone] [address] 2020-02-19 2020-02-19 [facility] [id number] Univers 00:00:00 00:00:00 (Out) Erika Jaylan Chan [id number] ity [place] [id number] [phone] Mn dical [address] 2019-10-05 2019-10-05 Office [facility] [id number] Univers 10:30:00 11:00:00 Visit Devoarh Chan [id number] i ty [place] [id number] [phone] Mn dical nal [address] [facility] 2019-08-19 2019-08-19 Emergency [place] [id number] Univers 18:29:48 19:28:00 Loan Chan [id number] [facility] [id number] [place] s [place] [id number] [facility] [address] [place] 2019-08-19 2019-08-19 Emergency X [facility] ERT [id number] Univers 18:21:00 [facility] Test Description Test Time Test Comments Results Result Comments Source POCT TEST 2021-02-06 21:02:00 Test Item Value Reference Range Interpretation Comme nts POCT PREG (test code = 1605) Negative On board controls acceptable with C Yes Line (test code = 3574) POCT PREG LOT # (test code = 3575) POCT PREG TEST DATE (test code = 3576) YARA (test code = YARA) accurate development and interpretation of all internal controls [id number] 21:02:00 Test Item Value Reference Range Interpretation Comments POCT PREG (test code Negative = 1605) On board controls Yes acceptable with C Line (test code = 3574) POCT PREG LOT # (test code = 3575) POCT PREG TEST DATE (test code = 3576) YARA (test code = YARA) accurate development and interpretation of all internal controls [facility] [id number] 21:02:00 Test Item Value Reference Range Interpretation Comments POCT PREG (test code Negative = 1605) On board controls Yes acceptable with C Line (test code = 3574) POCT PREG LOT # (test code = 3575) POCT PREG TEST DATE (test code = 3576) YARA (test code = YARA) accurate development and interpretation of all internal controls [facility]
--- NOTE | 2022-07-23 05:01 | ER ---
Nurse's Notes [facility] Name: Ramila Wong Age: 21 yrs Sex: Female : 2000 Arrival Date: 07/23/2022 Time: 04:42 Bed 15 Private MD: Diagnosis: Adjustment disorders Presentation: 07/23 03:55 Chief complaint: Patient states: Patient arrived per [facility] lg3 Officer Justin with C/O SI while in custody of [facility],onset PROFESSOR OF PSYCHOLOGY. Patient has an ANA in place. Justin stated patient was arrested on some outstanding warrants and was taken into custody of [facility] and while in custody, patient stated if left in the cell she will try and kill herself out of frustration. Patient stated has been dealing with a lot of stuff with her family, mother is going through a divorce and patient has been trying to help take care of her little brother. Patient denies any SI at this time. 03:55 Coronavirus screen: Vaccine status: Patient reports being unvaccinated. Client denies pf1 travel out of the [place] in the last 14 days. At this time, the client does not indicate any symptoms associated with coronavirus-19. Ebola Screen: Patient negative for fever greater than or equal to 101.5 degrees Fahrenheit, and additional compatible Ebola Virus Disease symptoms. Initial Sepsis Screen: Does the patient meet any 2 criteria? No. Patient's initial sepsis screen is negative. Does the patient have a suspected source of infection? No. Patient's initial sepsis screen is negative. Risk Assessment: Do you want to hurt yourself or someone else? Patient reports no desire to harm self or others. 03:55 Method Of Arrival: Law Enforcement: [facility] pf1 03:55 Acuity: BENJAMIN 2 pf1 Historical: - Allergies: 04:58 No Known Allergies; pf1 - PMHx: 04:58 Bipolar disorder; Anxiety; Depressive disorder; pf1 - PSHx: 04:58 Ankle; pf1 - Immunization history:: Adult Immunizations up to date, Client reports having NOT received the Covid vaccine. Last tetanus immunization: < 10 years ago Flu vaccine is not up to date. - Social history:: Smoking status: Patient reports the use of cigarette tobacco products, Patient uses street drugs, marijuana, Patient/guardian denies using alcohol. - Family history:: not pertinent. Screenin:05 [facility] ED Fall Risk Assessment (Adult) History of falling in the last 3 months, lg3 including since admission No falls in past 3 months (0 pts). Abuse screen: Denies threats or abuse. Denies injuries from another. Nutritional screening: No deficits noted. Tuberculosis screening: No symptoms or risk factors identified. Assessment: 05:05 General: Appears in no apparent distress. comfortable, Behavior is calm, cooperative. lg3 Pain: Denies pain. Neuro: No deficits noted. Thayer Agitation-Sedation Scale (RASS): 0 - Alert and Calm Level of Consciousness is awake, alert, obeys commands, Oriented to person, place, time, situation. Cardiovascular: No deficits noted. Denies chest pain, shortness of breath, Capillary refill < 3 seconds Clubbing of nail beds is absent JVD is absent Patient's skin is warm and dry. Respiratory: No deficits noted. Airway is patent Respiratory effort is even, unlabored, Respiratory pattern is regular, symmetrical. GI: No deficits noted. No signs and/or symptoms were reported involving the gastrointestinal system. Abdomen is round non-distended. : No deficits noted. No signs and/or symptoms were reported regarding the genitourinary system. EENT: No deficits noted. No signs and/or symptoms were reported regarding the EENT system. Derm: No deficits noted. No signs and/or symptoms reported regarding the dermatologic system. Skin is intact, is healthy with good turgor, Skin is dry, Skin is normal. Musculoskeletal: No deficits noted. No signs and/or symptoms reported regarding the musculoskeletal system. Circulation, motion, and sensation intact. Range of motion: intact in all extremities. 05:05 General: pt denies any suicidal thoughts, plans or intentions at this time. pt stated lg3 she lashed out verbally due to being frustrated at the time. . Vital Signs: 03:55 BP 110 / 81; Pulse 81; Resp 18; Temp 98.8; Pulse Ox 100% on R/A; Weight 104.33 kg; pf1 Height 6 ft. 2 in. (187.96 cm); Pain 0/10; 03:55 Body Mass Index 29.53 (104.33 kg, 187.96 cm) pf1 ED Course: 04:42 Patient arrived in ED. lg3 04:55 Peng Montiel MD is Attending Physician. rt 04:58 Triage completed. pf1 05:05 Patient has correct armband on for positive identification. Placed in gown. Bed in low lg3 position. Side rails up X 1. Client placed on continuous cardiac and pulse oximetry monitoring. NIBP monitoring applied. 05:05 No provider procedures requiring assistance completed. Patient did not have IV access lg3 during this emergency room visit. 05:14 Arm band placed on right wrist. lg3 Administered Medications: No medications were administered Medication: 05:05 VIS not applicable for this client. lg3 Outcome: 05:00 Discharge ordered by MD. rt 05:05 Discharged to home ambulatory. lg3 05:05 Condition: stable 05:05 Discharge instructions given to patient, Instructed on discharge instructions, follow up and referral plans. Demonstrated understanding of instructions, follow-up care. 05:19 Patient left the ED. lg3 Signatures: Joelle Hui RN RN lg3 Peng Montiel MD MD rt Ashley denis RN RN pf1 Corrections: (The following items were deleted from the chart) 05:05 03:55 Chief complaint: Patient states: Patient arrived per [facility]3 Health Officer Lisman with C/O SI while in custody of [place] [employer],onset PROFESSOR OF PSYCHOLOGY. Patient has an ANA in place. Lisman stated patient was arrested on some outstanding warrants and was taken into custody of [facility] and while in custody, patient stated if left in the cell she will try and kill herself. Patient stated has been dealing with a lot of stuff with her family, mother is going through a divorce and patient has been trying to help take care of her little brother. Patient denies any SI at this time. pf1
--- NOTE | 2022-07-23 05:01 | EDPHYS ---
Physician Documentation [facility] Name: Ramila Wong Age: 21 yrs Sex: Female : 2000 Arrival Date: 07/23/2022 Time: 04:42 Bed 15 Private MD: ED Physician Peng Montiel HPI: 07/23 05:09 This 21 yrs old Black Female presents to ER via Law Enforcement with complaints of rt Psych complaint. 05:09 Patient presents to the ED on emergency group home order from half-way. Patient was rt reportedly arrested on warrants. When she was told that she had a second warrant, she told the generation engineer's deputy that if she will put back in the cell that she would kill herself. Patient states that she was not actually suicidal, that this was only an outburst. She denies any plan of suicidality and denies any homicidal ideation. The patient denies any physical complaints. Denies other acute complaints at this time, symptoms are mild in severity, no other aggravating or alleviating factors.. Historical: - Allergies: 04:58 No Known Allergies; pf1 - PMHx: 04:58 Bipolar disorder; Anxiety; Depressive disorder; pf1 - PSHx: 04:58 Ankle; pf1 - Immunization history:: Adult Immunizations up to date, Client reports having NOT received the Covid vaccine. Last tetanus immunization: < 10 years ago Flu vaccine is not up to date. - Social history:: Smoking status: Patient reports the use of cigarette tobacco products, Patient uses street drugs, marijuana, Patient/guardian denies using alcohol. - Family history:: not pertinent. ROS: 05:09 Constitutional: Negative for fever, chills, and weight loss, Cardiovascular: Negative rt for chest pain, palpitations, and edema, Respiratory: Negative for shortness of breath, cough, wheezing, and pleuritic chest pain, Abdomen/GI: Negative for abdominal pain, nausea, vomiting, diarrhea, and constipation. 05:09 Psych: Positive for anxiety, Negative for suicidal ideation. Exam: 05:09 Constitutional: This is a well developed, well nourished patient who is awake, alert, rt and in no acute distress. Head/Face: Normocephalic, atraumatic. Chest/axilla: Normal chest wall appearance and motion. Nontender with no deformity. No lesions are appreciated. Cardiovascular: Regular rate and rhythm with a normal S1 and S2. No gallops, murmurs, or rubs. Normal PMI, no JVD. No pulse deficits. Respiratory: Lungs have equal breath sounds bilaterally, clear to auscultation and percussion. No rales, rhonchi or wheezes noted. No increased work of breathing, no retractions or nasal flaring. Abdomen/GI: Soft, non-tender, with normal bowel sounds. No distension or tympany. No guarding or rebound. No evidence of tenderness throughout. 05:09 Psych: Cooperative, good insight, denies SI, HI. Vital Signs: 03:55 BP 110 / 81; Pulse 81; Resp 18; Temp 98.8; Pulse Ox 100% on R/A; Weight 104.33 kg; pf1 Height 6 ft. 2 in. (187.96 cm); Pain 0/10; 03:55 Body Mass Index 29.53 (104.33 kg, 187.96 cm) pf1 MDM: 04:56 Patient medically screened. rt 05:09 Differential Diagnosis Adjustment disorder, suicidal ideation. Data reviewed: vital rt signs, nurses notes. Test considered but Not performed: Labs: Patient does not require involuntary psychiatric stabilization, labs not indicated. Counseling: I had a detailed discussion with the patient and/or guardian regarding: the historical points, exam findings, and any diagnostic results supporting the discharge/admit diagnosis, the need for outpatient follow up, to return to the emergency department if symptoms worsen or persist or if there are any questions or concerns that arise at home. Administered Medications: No medications were administered Disposition Summary: 07/23/22 05:00 Discharge Ordered Location: Home rt Problem: an ongoing problem rt Symptoms: have improved rt Condition: Stable rt Diagnosis - Adjustment disorders rt Followup: rt - With: Private Physician - When: 2 - 3 days - Reason: Discharge Instructions: - Discharge Summary Sheet rt - Adjustment Disorder, Adult rt Forms: - Medication Reconciliation Form rt - Thank You Letter rt - Antibiotic Education rt - Prescription Opioid Use rt Signatures: Peng Montiel MD MD rt Ashley denis RN RN pf1
== END 2022-07-23 05:19 | disposition home or self-care (01) ==
LOC: ER 04:27
DX: F43.20 Adjustment disorder, unspecified (principal)
CPT/HCPCS: 99281